=== PATIENT | male | born 1990 ===

== ENCOUNTER 2021-12-12 09:08 | Emergency (ER) | payer SELFPAY ==
--- NOTE | 2021-12-12 09:40 | XRay Report ---
XR abdomen 2V INDICATION / CLINICAL INFORMATION: abd pain and constipation. COMPARISON: None available. FINDINGS: TUBES / LINES: None. CHEST: Visualized chest shows no significant abnormality. BOWEL GAS PATTERN: No significant abnormality. FREE AIR / EXTRALUMINAL GAS: None seen. ADDITIONAL FINDINGS: Transitional features of the lumbosacral junction. IMPRESSION: 1. No significant abnormality. Signer Name: Esdras Hernandez MD Signed: 12/12/2021 9:36 AM Workstation Name: [email or web address]
--- NOTE | 2021-12-12 10:34 | Emergency Department Report ---
ED Abdominal Pain HPI - General Chief Complaint: Abdominal Pain Stated Complaint: CHEST/ABD PAIN PUI?: No Time Seen by Provider: 12/12/21 09:27 Source: patient Mode of arrival: Ambulatory Limitations: No Limitations - History of Present Illness Initial Comments: 31 yo come to ER with no BM in 1 week. Has not seen PCP. Has taken nothing [employer]. He endorses nausea. No vomiting. Ambulating and in nad Denies use of narcotic drugs Complaint: abdominal pain -: Gradual Location: diffuse Severity: mild Quality: cramping Consistency: constant Improves With: nothing Worsens With: nothing Associated Symptoms: denies other symptoms, nausea, constipation. denies: vomiting, diarrhea, fever, chills, dysuria, hematemesis, hematochezia, melena, hematuria, anorexia, syncope - Related Data Previous Rx's Medication Instructions Recorded Last Taken Type Docusate Sodium [Colace] 100 mg PO BID #20 capsule 12/12/21 Unknown Rx Magnesium Citrate [Citrate of 300 ml PO NOW #1 bottle 12/12/21 Unknown Rx Magnesia] Polyethylene Glycol 3350 [Miralax] 119 gm PO BID #20 12/12/21 Unknown Rx Sennosides [Senna] 8.6 mg PO BID #20 12/12/21 Unknown Rx Allergies Allergy/AdvReac Type Severity Reaction Status Date / Time No Known Allergies Allergy Verified 12/12/21 09:18 ED Review of Systems ROS: Stated complaint: CHEST/ABD PAIN Other details as noted in HPI Comment: All other systems reviewed and negative ED Past Medical Hx - Past Medical History Previous Medical History?: No - Surgical History Past Surgical History?: No - Family History Family history: no significant - Social History Smoking Status: Never Smoker Substance Use Type: None - Medications Home Medications: Home Medications Medication Instructions Recorded Confirmed Last Taken Type Docusate Sodium [Colace] 100 mg PO BID #20 capsule 12/12/21 Unknown Rx Magnesium Citrate [Citrate of 300 ml PO NOW #1 bottle 12/12/21 Unknown Rx Magnesia] Polyethylene Glycol 3350 [Miralax] 119 gm PO BID #20 12/12/21 Unknown Rx Sennosides [Senna] 8.6 mg PO BID #20 12/12/21 Unknown Rx ED Physical Exam - General Limitations: No Limitations General appearance: alert, in no apparent distress - Head Head exam: Present: atraumatic, normocephalic - Eye Eye exam: Present: normal appearance - ENT ENT exam: Present: mucous membranes moist - Neck Neck exam: Present: normal inspection - Respiratory Respiratory exam: Present: normal lung sounds bilaterally. Absent: respiratory distress - Cardiovascular Cardiovascular Exam: Present: regular rate, normal rhythm. Absent: systolic murmur, diastolic murmur, rubs, gallop - GI/Abdominal GI/Abdominal exam: Present: soft, normal bowel sounds - Rectal Rectal exam: Present: deferred - Extremities Exam Extremities exam: Present: normal inspection - Back Exam Back exam: Present: normal inspection - Neurological Exam Neurological exam: Present: alert, oriented X3 - Psychiatric Psychiatric exam: Present: normal affect, normal mood - Skin Skin exam: Present: warm, dry, intact, normal color. Absent: rash ED Course Vital Signs 12/12/21 09:16 Temperature 98.9 F Pulse Rate 80 Respiratory 14 Rate Blood Pressure 124/93 O2 Sat by Pulse 98 Oximetry ED Medical Decision Making - Lab Data Result diagrams: 12/12/21 10:39 12/12/21 10:39 - Radiology Data Radiology results: report reviewed, image reviewed see reports - Medical Decision Making Labs 12/12/21 12/12/21 10:39 10:39 WBC 7.2 RBC 5.34 H Hgb 16.2 H Hct 47.3 H MCV 89 MCH 30 MCHC 34 RDW 13.2 Plt Count 311 Sodium 138 Potassium 4.2 Chloride 104.6 Carbon Dioxide 24 Anion Gap 14 BUN 12 Creatinine 0.9 Estimated GFR > 60 BUN/Creatinine Ratio 13 Glucose 86 Calcium 9.6 Total Bilirubin 0.40 AST 13 ALT 15 Alkaline Phosphatase 71 Total Protein 7.6 Albumin 5.1 H Albumin/Globulin Ratio 2.0 Vital Signs 12/12/21 09:16 Temperature 98.9 F Pulse Rate 80 Respiratory 14 Rate Blood Pressure 124/93 O2 Sat by Pulse 98 Oximetry labs noted xray and CT noted colace/senna and miralax PO dc home with rx for Mg Citrate and instructions for NH suppository Dc home with dc plan of care including diet, meds, activity and follow up. Pt verbalizes understanding of the plan of care. No n/v. while in ER. On dc remains non toxic on exam - Differential Diagnosis constipation ro obstruction Critical care attestation.: If time is entered above; I have spent that time in minutes in the direct care of this critically ill patient, excluding procedure time. ED Disposition Clinical Impression: Constipation Qualifiers: Constipation type: unspecified constipation type Qualified Code(s): K59.00 - Constipation, unspecified Disposition: HOME / SELF CARE / HOMELESS Is pt being admited?: No Does the pt Need Aspirin: No Condition: Stable Instructions: Constipation, Adult Additional Instructions: medication as ordered today follow up with pcp sirisha referral below Prescriptions: Magnesium Citrate [Citrate of Magnesia] 300 ml PO NOW #1 bottle Docusate Sodium [Colace] 100 mg PO BID #20 capsule Polyethylene Glycol 3350 [Miralax] 119 gm PO BID #20 Sennosides [Senna] 8.6 mg PO BID #20 Referrals: GRABIEL JUAREZ MD [Staff Physician] - 3-5 Days Forms: Accompanied Note Time of Disposition: 13:17 Print Language: KOSOVAN
[2021-12-12 11:21] LABS: Hematocrit 47.3 % (35.5-45.6); Hemoglobin 16.2 gm/dl (11.8-15.2); Mean Corpuscular HGB Conc 34 % (32-34); Mean Corpuscular Volume 89 fl (84-94); Platelet Count 311 K/mm3 (140-440); Red Blood Count 5.34 M/mm3 (3.65-5.03); Red Cell Distribution Width 13.2 % (13.2-15.2)
[2021-12-12 11:42] LABS: Alanine Aminotransferase 15 units/L (7-56); Albumin 5.1 g/dL (3.9-5); BUN/Creatinine Ratio 13; Blood Urea Nitrogen 12 mg/dL (9-20); Calcium 9.6 mg/dL (8.4-10.2); Hemolysis Index 2
--- NOTE | 2021-12-12 12:53 | Cat Scan Report ---
CT ABDOMEN AND PELVIS WITH CONTRAST HISTORY: abd pain; no bm x 1w COMPARISON: Abdomen 2 view performed earlier today TECHNIQUE: Axial CT images were obtained through the abdomen and pelvis after 100 cc of IV contrast. Sagittal and coronal reformatted images. All CT scans at this location are performed using CT dose re duction for ALARA by means of automated exposure control. FINDINGS: CT ABDOMEN: Lung Bases: Clear. Liver: No significant abnormality. Biliary: No significant abnormality. Spleen: No significant abnormality. Unenlarged. Pancreas: No significant abnormality. Adrenals: No significant abnormality. Kidneys: No significant abnormality. Lymphatics: No lymphadenopathy. Vasculature: No significant abnormality. Bowel/Peritoneum: No significant abnormality. No free air. No free fluid. There is normal fecal matte r in the colon. Normal appendix. CT PELVIS: : No significant abnormality. Osseous Structures: No significant abnormality. Additional Findings: None IMPRESSION: No significant abnormality. Signer Name: Norberto Hirsch Jr, MD Signed: 12/12/2021 12:49 PM Workstation Name: [id number]
[2021-12-12] MEDS ORDERED: DOCUSATE SODIUM 100 MG/10 ML ORAL LIQD PO ONE (13:13)
[2021-12-12] MEDS ORDERED: SENNOSIDES 8.6 MG TAB PO ONE (13:13)
[2021-12-12 13:56] VITALS: BP 147/63
[2021-12-12] MEDS ORDERED: POLYETHYLENE GLYCOL 3350 17 GM POWDER PO ONE (14:00)
== END 2021-12-12 14:02 | disposition home or self-care (01) ==
LOC: ED 09:08
DX: K59.00 Constipation, unspecified (principal); R10.84 Generalized abdominal pain; R11.0 Nausea; Z79.899 Other long term (current) drug therapy
CPT/HCPCS: 36415; 74019; 74177; 80053; 85027; 99284; Q9967

== ENCOUNTER 2022-02-06 17:28 | Emergency (ER) | payer OTHER ==
[2022-02-06] MEDS ORDERED: dexAMETHasone 4 MG/ML VIAL PO ONE (21:05)
[2022-02-06] MEDS ORDERED: PENICILLIN G BENZATHINE 1.2 MILLION UNIT/2 ML INJ IM STA (21:05)
--- NOTE | 2022-02-06 22:22 | Emergency Department Report ---
ED ENT HPI - General Chief complaint: Sore Throat Stated complaint: SORE THROAT Time Seen by Provider: 02/06/22 21:03 Source: patient, family Mode of arrival: Ambulatory Limitations: No Limitations - History of Present Illness MD complaint: sore throat -: days(s) (3) Location: throat Severity: moderate Quality: dull Consistency: constant Worsens with: swallowing, eating Associated Symptoms: pain with swallowing, sore throat. denies: cough, gum swelling, toothache, tinnitus, hearing loss, discharge from ear, rhinorrhea - Related Data Previous Rx's Medication Instructions Recorded Last Taken Type Docusate Sodium [Colace] 100 mg PO BID #20 capsule 12/12/21 Unknown Rx Magnesium Citrate [Citrate of 300 ml PO NOW #1 bottle 12/12/21 Unknown Rx Magnesia] Polyethylene Glycol 3350 [Miralax] 119 gm PO BID #20 12/12/21 Unknown Rx Sennosides [Senna] 8.6 mg PO BID #20 12/12/21 Unknown Rx Allergies Allergy/AdvReac Type Severity Reaction Status Date / Time No Known Allergies Allergy Verified 12/12/21 09:18 ED Dental HPI - General Chief complaint: Sore Throat Stated complaint: SORE THROAT Time Seen by Provider: 02/06/22 21:03 Source: patient, family Mode of arrival: Ambulatory Limitations: No Limitations - Related Data Previous Rx's Medication Instructions Recorded Last Taken Type Docusate Sodium [Colace] 100 mg PO BID #20 capsule 12/12/21 Unknown Rx Magnesium Citrate [Citrate of 300 ml PO NOW #1 bottle 12/12/21 Unknown Rx Magnesia] Polyethylene Glycol 3350 [Miralax] 119 gm PO BID #20 12/12/21 Unknown Rx Sennosides [Senna] 8.6 mg PO BID #20 12/12/21 Unknown Rx Allergies Allergy/AdvReac Type Severity Reaction Status Date / Time No Known Allergies Allergy Verified 12/12/21 09:18 ED Review of Systems ROS: Stated complaint: SORE THROAT Other details as noted in HPI Comment: All other systems reviewed and negative ED Past Medical Hx - Past Medical History Previous Medical History?: No - Surgical History Past Surgical History?: Yes Hx Appendectomy: Yes - Social History Smoking Status: Never Smoker Substance Use Type: None - Medications Home Medications: Home Medications Medication Instructions Recorded Confirmed Last Taken Type Docusate Sodium [Colace] 100 mg PO BID #20 capsule 12/12/21 Unknown Rx Magnesium Citrate [Citrate of 300 ml PO NOW #1 bottle 12/12/21 Unknown Rx Magnesia] Polyethylene Glycol 3350 [Miralax] 119 gm PO BID #20 12/12/21 Unknown Rx Sennosides [Senna] 8.6 mg PO BID #20 12/12/21 Unknown Rx ED Physical Exam - General Limitations: No Limitations General appearance: alert, in no apparent distress - Head Head exam: Present: atraumatic, normocephalic - Eye Eye exam: Present: normal appearance - ENT ENT exam: Present: mucous membranes moist, other (Pharynx is red swollen with lymphadenopathy and exudate noted. Normal voice no drooling. Ears are clear. No chest pain palpitation) - Neck Neck exam: Present: normal inspection - Respiratory Respiratory exam: Present: normal lung sounds bilaterally. Absent: respiratory distress - Cardiovascular Cardiovascular Exam: Present: regular rate, normal rhythm. Absent: systolic murmur, diastolic murmur, rubs, gallop - GI/Abdominal GI/Abdominal exam: Present: soft, normal bowel sounds - Rectal Rectal exam: Present: deferred - Extremities Exam Extremities exam: Present: normal inspection - Back Exam Back exam: Present: normal inspection - Neurological Exam Neurological exam: Present: alert, oriented X3 - Psychiatric Psychiatric exam: Present: normal affect, normal mood - Skin Skin exam: Present: warm, dry, intact, normal color. Absent: rash ED Course Vital Signs 02/06/22 20:29 Temperature 99.1 F Pulse Rate 75 Respiratory 15 Rate Blood Pressure 149/69 [Left] O2 Sat by Pulse 99 Oximetry Critical care attestation.: If time is entered above; I have spent that time in minutes in the direct care of this critically ill patient, excluding procedure time. ED Disposition Clinical Impression: Exudative pharyngitis Disposition: HOME / SELF CARE / HOMELESS Is pt being admited?: No Does the pt Need Aspirin: No Condition: Stable Instructions: Strep Throat, Adult, Pharyngitis, Sore Throat, [id number] Referrals: [facility] [Provider Group] - 3-5 Days
[2022-02-07 05:16] VITALS: BP 122/88
== END 2022-02-06 23:35 | disposition home or self-care (01) ==
LOC: ED 17:28
DX: J06.9 Acute upper respiratory infection, unspecified (principal)
CPT/HCPCS: 87116; 87430; 96372; 99283; J0561; J1100